=== PATIENT | male | born 1960 | race Asian ===

== ENCOUNTER 2018-02-23 11:08 | Observation (INO) | payer OTHER ==
[2018-02-23] MEDS ORDERED: TDAP ADULT 0.5 ML INJ (BOOSTRIX) IM ONE (11:17)
--- NOTE | 2018-02-23 11:20 | EDPHY ---
General Time Seen by Provider: 02/23/18 11:18 Narrative: CHIEF COMPLAINT: Fall, head injury HISTORY OF PRESENT ILLNESS: Patient presents by EMS and is seen at time of arrival. He complains of headache status post fall. His son is at bedside and witness the fall. He states that he was walking a dog when the dog pulled to the ground. He reportedly in the back of his head and lost consciousness for 60-90 seconds. He then awoke feeling confused and disoriented. He does not remember anything prior to fall until breakfast, approximately 40 min prior. He has complaints of headache and nausea but no vomiting. No visual disturbance. No neck pain. No chest, back or abdominal pain. He has been refusing his C-collar. He has no reports of injury elsewhere. Patient is Sary speaking only, but his son provides interpretation with his permission. He is declining the language line in lieu of the son interpreting. REVIEW OF SYSTEMS: Ten systems reviewed and are negative unless otherwise noted in the HPI PCP: Located in [place] SPECIALISTS: None PAST MEDICAL HISTORY: Hypertension. No anticoagulation use PAST SURGICAL HISTORY: None SOCIAL HISTORY: Nonsmoker. Lives in [place] with his spouse. Currently traveling until mid February. FAMILY HISTORY: Noncontributory EXAMINATION General Appearance: Alert, no distress Head: normocephalic. Occipital hematoma with superficial abrasion. There is no pulsatile hematoma. No Clark sign. No raccoon eyes. No depression. Eyes: Pupils equal and round, no conjunctival pallor or injection ENT, Mouth: Mucous membranes moist Neck: Normal inspection, supple, non-tender. No midline tenderness, crepitus or deformity. Respiratory: Lungs are clear to auscultation Cardiovascular: Regular rate and rhythm Gastrointestinal: Abdomen is soft and nontender Back: non-tender, no bony abnormalities Neurological: GCS 15. A&O x3, nonfocal, normal [id number]. No pronator drift. Strength is symmetric in all 4 extremities. Skin: Warm and dry, no rash. Superficial abrasion to the occiput measuring 1 cm. Superficial abrasion to the dorsum of the left hand at the 3rd MCP joint without laceration. Extremities: Nontender, no pedal edema Psychiatric: Mood and affect normal DIFFERENTIAL DIAGNOSES: Including but not limited to MDM: 11:15 a.m. Mechanical fall with blunt, closed head injury of the occipital skull. He does have a hematoma there with brief loss of consciousness and brief retrograde amnesia. He appears to be in no distress with a normal neuro examination. His GCS is 15, alert to person, place and time but disoriented to exact details of the injury. His tetanus is in question. He is refusing a C-collar but appears to be neuro intact distally. I have ordered CT scans of the head and cervical spine. We will irrigate the abrasions. 11:40 a.m. Notified by RN that the patient has vomited just after the CT scans were performed. Despite this his mental status continues to improve as he is now remembering more of the details of the injury. 11:[address] Blackman. CT scan of the head reveals nondisplaced occipital fracture with crew injury to the frontal lobe as documented. I will consult Neurosurgery and discussed further with Dr. Melendez. 11:53 a.m. Case discussed with circulating nurse with Dr. Arboleda, as he is currently scrubbed into a case that [facility]. We discussed the positive CT scans findings. She reports today will contact a backup neurosurgeon see the patient shortly emergency department 12:00 p.m. Case discussed with trauma surgeon Dr. Willett. She will come evaluate the patient shortly emergency department. She will accept the patient to her service. 12:[address] Lacy Willett is at bedside evaluating the patient. 1:05 p.m. Patient has remained stable emergency department as not being transported to his inpatient room. He is awake alert no acute distress. SUPERVISION: Patient was independently examined, but I discussed the case with my primary supervising physician Dr. Melendez. (Pineda Tobin) - Diagnostics Imaging Results: Imaging Impressions Cervical Spine CT 02/23/18 11:17 Impression: 1. No acute fracture or soft tissue swelling. 2. If the patient has persistent pain or neurologic deficits, consider cervical spine MRI. Findings discussed with Emergency Department physicianPineda PA-C on , 11:50. Head CT 02/23/18 11:17 Impression: 1. Nondisplaced occipital skull fracture. 2. Small petechial hemorrhagic contusion is in low bilateral frontal lobes and right anterior temporal lobe. 3. Small subdural hematomas along the right frontal and right temporal lobes. 4. Minimal subarachnoid hemorrhage along the high right frontal lobe and interhemispheric falx. 5. No mass effect or shift. Findings discussed with Emergency Department physician physician assistant primary care, Pineda Tobin on 02/23/2018, 11:48. - Objective Vital Signs: Initial Vital Signs Temperature (C) 36.5 C 02/23/18 11:15 Heart Rate 78 02/23/18 11:15 Respiratory Rate 16 02/23/18 11:15 Blood Pressure 170/92 H 02/23/18 11:15 O2 Sat (%) 94 02/23/18 11:15 O2 Delivery Mode Room Air Allergies/Adverse Reactions: No Known Allergies Allergy (Verified 02/23/18 11:20) Laboratory Results: Laboratory Results 02/23/18 12:00 02/23/18 12:00 02/23/18 02/23/18 02/23/18 12:00 12:00 12:00 WBC 11.60 10^3/uL H 10^3/uL (3.80-9.50) RBC 4.36 10^6/uL L 10^6/uL (4.40-6.38) Hgb 14.1 g/dL g/dL (13.7-17.5) Hct 42.0 % % (40.0-51.0) MCV 96.3 fL fL (81.5-99.8) MCH 32.3 pg pg (27.9-34.1) MCHC 33.6 g/dL g/dL (32.4-36.7) RDW 13.2 % % (11.5-15.2) Plt Count 209 10^3/uL 10^3/uL (150-400) PT 12.9 SEC SEC (12.0-15.0) INR 0.95 (0.83-1.16) APTT 21.9 SEC L SEC (23.0-38.0) Sodium 137 mEq/L mEq/L (135-145) Potassium 3.5 mEq/L mEq/L (3.3-5.0) Chloride 104 mEq/L mEq/L (97-110) Carbon Dioxide 27 mEq/l mEq/l (22-31) Anion Gap 6 mEq/L L mEq/L (8-16) BUN 11 mg/dL mg/dL (7-23) Creatinine 0.8 mg/dL mg/dL (0.7-1.3) Estimated GFR > 60 Glucose 131 mg/dL H mg/dL (70-100) Calcium 9.4 mg/dL mg/dL (8.5-10.4) Medications Given: Acetaminophen (Tylenol) 325 - 650 mg PO Q4HRS PRN PRN Reason: Pain, Mild Able to Take PO Stop: 08/22/18 11:59 Last Admin: 02/23/18 19:24 Dose: 650 mg Amlodipine Besylate (Norvasc) 5 mg PO DAILY GENET Stop: 08/22/18 14:59 Last Admin: 02/23/18 16:18 Dose: 5 mg Nicardipine/Sodium Chloride (Cardene 0.1 Mg/Ml (Premix)) 200 mls @ 0 mls/hr IV CONT GENET; Titrate PRN Reason: Protocol Stop: 08/22/18 14:59 Last Admin: 02/23/18 17:27 Dose: 200 mls Sodium Chloride (Ns) 1,000 mls @ 50 mls/hr IV CONT GENET Stop: 08/22/18 16:44 Last Admin: 02/23/18 17:27 Dose: 1,000 mls Ondansetron HCl (Zofran) 4 mg IVP Q4HRS PRN PRN Reason: Nausea/Vomiting, Can't Take PO Stop: 08/22/18 11:59 Last Admin: 02/23/18 15:46 Dose: 4 mg Discontinued Medications Diphtheria/Tetanus/Acell Pertussis (Boostrix) 0.5 ml IM .ONCE ONE Stop: 02/23/18 11:18 Last Admin: 02/23/18 11:45 Dose: 0.5 ml Ondansetron HCl (Zofran Odt) 4 mg PO EDNOW ONE Stop: 02/23/18 11:41 Last Admin: 02/23/18 11:43 Dose: 4 mg Departure - Departure Disposition: [facility] Inpatient Acute Clinical Impression: Traumatic subdural hematoma Qualifiers: Encounter type: initial encounter Loss of consciousness presence/duration: with LOC of 30 min or less Qualified Code(s): S06.5X1A - Traumatic subdural hemorrhage with loss of consciousness of 30 minutes or less, initial encounter Closed occipital fracture Qualifiers: Encounter type: initial encounter Qualified Code(s): S02.119A - Unspecified fracture of occiput, initial encounter for closed fracture Condition: Good
[2018-02-23] MEDS ORDERED: ONDANSETRON DISINTEGRATING 4 MG TAB PO ONE (11:40)
[2018-02-23] MEDS ORDERED: NALOXONE HCL 0.4 MG/ML INJ IVP PRN (12:00)
[2018-02-23] MEDS ORDERED: ONDANSETRON DISINTEGRATING 4 MG TAB PO PRN (12:00)
[2018-02-23 12:21] LABS: INR 0.95 (0.83-1.16); PROTIME(PATIENT) 12.9 SEC (12.0-15.0)
--- NOTE | 2018-02-23 13:54 | GHP ---
[f rep st] HISTORY AND PHYSICAL DATE OF ADMISSION: 02/23/2018 CHIEF COMPLAINT: Subdural hematoma. HISTORY OF PRESENT ILLNESS: The patient is a 57-year-old Sary-speaking man, who was walking when he fell and struck his head. He had no loss of consciousness. His headache was severe. He had emesis x1. He presented to the emergency room. In the emergency room, a CT scan was performed of his head and C-spine. It showed a nondisplaced occipital skull fracture, small petechial hemorrhages in the b ilateral frontal lobes and right anterior temporal lobe, small subdural hematomas along the right fro ntal and right temporal lobes, minimal subarachnoid hemorrhage, and no mass or shift effect. His C-s pine was negative for acute bony injury. He complains of a headache and slight pain by his left jaw. PAST MEDICAL HISTORY: Hypertension. PAST SURGICAL HISTORY: None. SOCIAL HISTORY: He walks every morning. He participates in yoga. He does smoke 8 to 10 cigarettes a day. He drinks approximately 100 mL of alcohol daily. FAMILY HISTORY: Noncontributory. REVIEW OF SYSTEMS: A 10-point review of systems is negative except per HPI. PHYSICAL EXAM: VITAL SIGNS: 36.6, 87, 161/84, 20, and 97% on room air. GENERAL: A pleasant well-n ourished man, sitting up for exam on a gurney. Family at bedside. Phone car filler who speaks Hind i. HEENT: Normocephalic, atraumatic. No gross hearing deficits. Pupils equal and round to light a nd accommodation. No scleral icterus. No injection. No otorrhea. No rhinorrhea. No hemotympanum. Teeth fit together normally. Posterior pharynx clear. NECK: No cervical spine tenderness. Full range of motion. LUNGS: Clear to auscultation bilaterally. No increased work of breathing. CARDIA C: Regular rate. No peripheral edema. ABDOMEN: Bowel sounds present. Soft, nontender, and nondis tended. BACK: No abrasions or ecchymosis. Nontender to palpation. MUSCULOSKELETAL: 5/5 strength in upper and lower extremities. NEUROLOGICAL: 2 through 12 grossly intact. SKIN: Warm and dry. IMPRESSION/PLAN: A 57-year-old status post fall with subdural hematoma and skull fracture. Neurosur nicolasa has been consulted. Admit him to the step-down unit for neurological checks. No oral intake un til Neurosurgery sees him. If tertiary survey is negative, then Trauma will sign off. /[id number]/MODL
[2018-02-23] MEDS: ACETAMINOPHEN 325 MG TAB PO PRN ×2 (14:48→19:24)
[2018-02-23] MEDS: niCARdipine/NACL 200 ML IV SCH ×2 (15:00→17:27)
[2018-02-23] MEDS: ONDANSETRON 4 MG/2 ML VIAL IVP PRN (15:46)
[2018-02-23] MEDS: amLODIPine BESYLATE 5 MG TAB PO SCH (16:18)
[2018-02-23] MEDS ORDERED: NS 1,000 ML IV SCH (16:45)
--- NOTE | 2018-02-23 16:56 | ASMTCMCOM ---
CM Note CM Note Notes: 57yr old male admitted after a fall: Skull fx, occipital fx, SDH, SAH. He has a Hx of HTN, a smoker. Patient is and Sary speaking. Therapies to eval. CM to follow for possible discharge needs. Date Signed: 02/23/2018 04:56 PM Electronically Signed By:America Prather LCSW
--- NOTE | 2018-02-24 07:51 | NEUSURGPN ---
Assessment/Plan: Assessment: 57 year old M s/p fall with non-displaced occipital skull fracture, small fronto-temporal contusions and thin SDH without shift Plan: -No repeat head scans unless change in exam. Neuro intact with GCS 15 on admission and this am. -Ok to discharge from neurosurgery standpoint. Red flag symptoms reviewed with family and patient. Patient will stay local this week and was recommended to avoid ETOH and smoking. -Avoid ASA and other blood thinning medications -Follow up with Dr Arboleda this Saturday prior to travel -Patient discussed with Dr Abroleda Please call neurosurgery with any questions/concerns Subjective: Patient has headache, no other complaints Objective: AxO x3 CN 2-12 grossly intact PERRLA EOMI SPIVEY x4 5/5 Sensation intact to light touch BLE Neuro Check Frequency: per routine Urinary Catheter in Place: No - Physician Discussed Patient with Dr.: Arboleda Neurosurgery Physical Exam - Vitals, I&O, Labs I and O 02/23/18 02/24/18 02/25/18 05:59 05:59 05:59 Intake Total 1136 Balance 1136 Weight 87 kg Intake: Oral (ml) 600 IV Intake (ml) 74 IV Infused (ml) 462 Ns 1,000 ml @ 50 mls/hr 200 IV CONT GENET Rx#: [id number] niCARdipine/NACL 200 ml @ 262 Titrate IV CONT GENET Rx#: [id number] Other: Number of Voids Toilet 1 Vital Signs Temp Pulse Resp BP Pulse Ox 36.6 C 73 18 141/74 H 92 02/24/18 07:13 02/24/18 07:13 02/24/18 07:13 02/24/18 07:13 02/24/18 07:13 ICD10 Worksheet Patient Problems: Problems Problem Status Onset Closed occipital fracture Acute Traumatic subdural hematoma Acute
[2018-02-24] MEDS: ONDANSETRON 4 MG/2 ML VIAL IVP PRN (08:18)
[2018-02-24] MEDS: ACETAMINOPHEN 325 MG TAB PO PRN (08:19)
[2018-02-24] MEDS: amLODIPine BESYLATE 5 MG TAB PO SCH (08:19)
--- NOTE | 2018-02-24 09:23 | TRAUMAPN ---
Trauma Progress Note Assessment/Plan: 57 Y M s/p fall while walking, +headstrike, no LOC, +ARGUELLO, emesis x1. + nondisplaced occipital fracture. Other minor findings include small petechial hemorrhages of B frontal lobes and right anterior temporal lobe. minimal SAH. Tertiary survey. Seen and examined with Dr. Reynoso. No new findings. Stable. Appreciate NS input. Likely d/c later today with family to their air bnb home. Plans for return travel to [facility] next weekend. F/u c NS later this week as planned. Consider nicotine patch RX on d/c. S: no new complaints. ARGUELLO better. Wants to go home. O: alert, nad, lying in bed comfortably, collar cleared and off pupils equal and round, mmm, no otorrhea ctab rrr, no m abd soft, NT ext: wwp, bermudez x4 appropriately Objective: Vital Signs Temp Pulse Resp BP Pulse Ox 36.6 C 73 18 133/66 H 92 02/24/18 07:13 02/24/18 07:13 02/24/18 07:13 02/24/18 08:19 02/24/18 07:13 02/23/18 02/24/18 02/25/18 05:59 05:59 05:59 Intake Total 1136 Balance 1136 PT 12.9 SEC (12.0-15.0) 02/23/18 12:00 INR 0.95 (0.83-1.16) 02/23/18 12:00
--- NOTE | 2018-02-24 09:31 | GCON ---
[f rep st] CONSULTATION DATE OF CONSULTATION: 02/23/2018 CONSULTING SERVICE: Emergency Medicine and Trauma Surgery. ASSEM[employer]ER W[employer] M[employer] GATE: Neurosurgery. REASON FOR CONSULT: Skull fracture and small intracranial hemorrhage. HISTORY OF PRESENT ILLNESS: The patient is a 57-year-old, Sary-speaking man who was walking a dog. The dog pulled him to the ground and he struck his head. He struck the back of his head and reporte dly lost consciousness for 60 to 90 seconds. When he awoke, he was confused and disoriented and had some retrograde amnesia as well. He was brought into the emergency room where a head CT was performe d demonstrating the occipital bone fracture that is nondisplaced and contrecoup frontotemporal small intraparenchymal contusions and very thin subdural hematomas. At this point in time, he is back at h is baseline with a GCS of 15, complaining only of nausea but no vomiting. His son is present to prov dimas translation. PAST MEDICAL AND SURGICAL HISTORY: Hypertension. CODE STATUS: Full. ALLERGIES: No known drug allergies. SOCIAL HISTORY: He participates in yoga and walks daily. He smokes about approximately a half pack cigarettes a day and is a daily drinker. FAMILY HISTORY: Reviewed but is noncontributory in this traumatic setting. REVIEW OF SYSTEMS: Ten points are reviewed and negative other than stated in HPI. PHYSICAL EXAM: VITAL SIGNS: Temperature 36.6, pulse rate 87, blood pressure 161/84, respiratory rat e 20, saturating 97% on room air. NEUROLOGIC EXAM: With the son as community health program representative, the patient is awake , alert, and oriented x3. Appears stated age, in no acute distress. Normal fluent speech. Normal c ranial nerves. 5/5 strength in all extremities. No pronator drift. Normal sensation to light touch and pinprick. Normal reflexes. No Robertson's, clonus, or Babinski's or hyperreflexia noted. No cer ebellar findings. Gait is deferred. LABS: White blood cells 11.6, hemoglobin 14.1, platelet count 209. INR 0.95, PTT 21.9. Sodium 137, potassium 3.5, BUN 11, creatinine 0.8, glucose 131. REVIEW OF IMAGING: I reviewed the patient's noncontrasted CT of the head and agree he had a nondispl aced linear occipital bone fracture and contrecoup frontotemporal contusions that are very small and a small, thin frontal subdural hematoma that is not compressive. There is no midline shift. There i s no large mass lesion. IMPRESSION AND PLAN: A 57-year-old male with a fall earlier while walking a dog, struck the back of his head, has a nondisplaced occipital bone fracture and contrecoup frontotemporal contusions that ar e very small and a very thin frontal subdural as well. He is back at his baseline with a GCS of 15, complaining only of nausea. No more scans are required. No Keppra is required. The patient can be observed in the stepdown unit for q.2 neuro checks overnight. He can eat as far as I am concerned. Tomorrow, if he is looking well and clears therapy, he can be discharged. He needs to follow up with me in my office on this Saturday as he has plans to fly to [place], [place] on Saturday, a wee k from today. So, will probably be fine if he is feeling okay. I also counseled him and his family regarding signs and symptoms of concussion and educated them that these may present and could last da ys to weeks. They appreciated my consultation on following along. /[id number]/MODL
[2018-02-24 13:27] VITALS: BP 129/58
[2018-02-24] MEDS ORDERED: [UNRECOGNIZED DRUG - OTHER] TP PRN (14:20)
[2018-02-24] MEDS ORDERED: [UNRECOGNIZED DRUG - OTHER] PO PRN (14:20)
[2018-02-24] MEDS ORDERED: [UNRECOGNIZED DRUG - OTHER] TP PRN (14:20)
[2018-02-24] MEDS ORDERED: [UNRECOGNIZED DRUG - OTHER] PO PRN (14:20)
[2018-02-24] MEDS ORDERED: PARACETAMOL PO PRN (14:20)
--- NOTE | 2018-02-24 15:17 | ASDISCHSUM ---
Discharge Information Plan Status:Home with No Needs Medically Cleared to Leave:02/24/2018 Discharge Date:02/24/2018 03:10 PM CM D/C Disposition:Home, Routine, Self-Care ADT D/C Disposition:Home, Routine, Self-Care Projected Discharge Date:02/24/2018 03:00 PM Transportation at D/C:Family Discharge Delay Reason: Follow-Up Date:02/24/2018 03:00 PM Discharge Slot: Final Diagnosis:Fall: Skull fx, Occipital fx, SDH, SAH Placement Information Patient Contact Information Contact Name:MARIAH Relationship:Son Address:[address] City:[place] Alternate Phone: [facility]/Zip Code:[place] [address] Email: Financial Information Financial Class:HMO and PPO Plans Primary Plan Desc:[employer] [facility] Primary Plan Number:[id number] Secondary Plan Desc: Secondary Plan Number: Assessment Information [facility] CM Progress Note CM Note CM Note Notes: 57yr old male admitted after a fall: Skull fx, occipital fx, SDH, SAH. He has a Hx of HTN, a smoker. Patient is and Sary speaking. Therapies to eval. CM to follow for possible discharge needs. Date Signed: 02/23/2018 04:56 PM Electronically Signed By:America Prather LCSW LACE LACE Length of stay for Answers: 1 day current admission Acuity / Level of Answers: No Care: Did the patient have an inpatient admission? Comorbidities - select Answers: Other Notes: HTN, Smoker all that apply # of Emergency department Answers: 1-2 visits in the last 6 months Score: 3 Date Signed: 02/23/2018 04:57 PM Electronically Signed By:America Prather LCSW Case Management Discharge Plan Note Case Management Discharge Discharge Order Complete? Answers: Yes Patient to Obtain Answers: via Family Medications Transportation Arranged Answers: Family/Friends Transport will Pick (Date 02/24/2018 03:00 PM & Time) Family Notified Answers: Yes Notes: Family to transport Discharge Comments Notes: Patient has been cleared by Therapies to go home with family supervision. Patient to fly with family to [place] this week and then on to [facility] in another week. Date Signed: 02/24/2018 03:16 PM Electronically Signed By:America Prather LCSW Intervention Information
--- NOTE | 2018-02-24 15:17 | ASMTDCNOTE ---
Case Management Discharge Discharge Order Complete? Answers: Yes Patient to Obtain Answers: via Family Medications Transportation Arranged Answers: Family/Friends Transport will Pick (Date 02/24/2018 03:00 PM & Time) Family Notified Answers: Yes Notes: Family to transport Discharge Comments Notes: Patient has been cleared by Therapies to go home with family supervision. Patient to fly with family to [place] this week and then on to [facility] in another week. Date Signed: 02/24/2018 03:16 PM Electronically Signed By:America Prather LCSW
[2018-02-25] MEDS ORDERED: CETIRIZINE 10 MG TAB PO SCH (09:00)
[2018-02-25] MEDS ORDERED: [UNRECOGNIZED DRUG - OTHER] PO SCH (09:00)
--- NOTE | 2018-03-03 11:34 | GDS ---
[f rep st] DISCHARGE SUMMARY DISCHARGE DIAGNOSES: 1. Traumatic fall with head strike. No loss of consciousness. 2. Nondisplaced occipital skull fracture. 3. Subdural hematoma. 4. Minimal subarachnoid hemorrhage. 5. Small petechial hemorrhages in the bilateral frontal lobes and right anterior temporal lobe. 6. Headache. 7. History of hypertension. CONSULTATIONS: Dr. Kip Arboleda, neurosurgery. SPECIAL TESTS: CT scan of the head upon admission showed a nondisplaced occipital skull fracture with small petechial hemorrhage contusion in the low bilateral frontal lobes and right anterior temporal lobes. Also small subdural hematoma along the right frontal and right temporal lobes. Minimal subarachnoid hemorrhage along the high right frontal lobe and interhemispheric falx. No mass shift or effect. Please see report for details. CT of the cervical spine showed no acute fracture or soft swelling. HOSPITAL COURSE: The patient is a 57-year-old, primarily Sary speaking man who was visiting his son and [id number] with his . He was walking a dog and the dog pulled him to the ground and he struck his head. Per reports, when he awoke, he had some confusion and disorientation and some retrograde amnesia. Head CT was performed with findings per above. He was seen by the trauma surgeon and Neurosurgery. At the time of his neurosurgical evaluation, he had a GCS of 15 and was complaining of nausea and headache, but no vomiting. He was kept for observation. Neurosurgery felt no more scans were necessary and Keppra was not required. He was observed in the step-down unit for q.2 hours neuro checks. He was allowed to eat. His nausea resolved and he still had a residual headache. The patient was seen by Dr. Reynoso for tertiary survey. He was considered stable and appropriate for discharge. He was discharged with his family to their [facility] home with plans to follow up with Neurosurgery later in the week prior to return travel to [facility] the following weekend. He was given a prescription for nicotine patch on discharge. /[id number]/MODL MTDD
== END 2018-02-24 15:10 | disposition home or self-care (01) ==
LOC: F2N 13:05
PROVIDERS: ADMIT Surgery; ATTEND Surgery
DX: S06.5X1A Traumatic subdural hemorrhage with loss of consciousness of 30 minutes or less, initial encounter (principal); S02.119A Unspecified fracture of occiput, initial encounter for closed fracture; W01.0XXA Fall on same level from slipping, tripping and stumbling without subsequent striking against object, initial encounter; Y93.K1 Activity, walking an animal
CPT/HCPCS: 70450; 72125; 90471; 92523; 97116; 97161; 97165; 97530; 99285; G0378; J2405